=== PATIENT | female | born 1990 | race American Indian/Alaskan Native ===

== ENCOUNTER 2018-11-28 19:59 | Emergency (ER) | payer OTHER ==
--- NOTE | 2018-11-28 21:24 | Event Note ---
ED Screening Note Date of service: 11/28/18 Time: 21:23 ED Screening Note: 28 y/o female c/o left thumb lacerations around 4-5pm. Cut on knife. This initial assessment/diagnostic orders/clinical plan/treatment(s) is/are subject to change based on patients health status, clinical progression and re- assessment by fellow clinical providers in the ED. Further treatment and workup at subsequent clinical providers discretion. Patient/guardian urged not to elope from the ED as their condition may be serious if not clinically assessed and managed. Initial orders include:
[2018-11-28] MEDS ORDERED: NORCO 5/325 PO ONE (23:34)
--- NOTE | 2018-11-28 23:34 | Emergency Department Report ---
ED Laceration HPI - HPI Chief Complaint: Wound/Laceration Stated Complaint: LACERATION TO LT THUMB Occurred When: Today Location: Upper Extremity (left first digit) Tetanus Status: Up to Date Laceration Symptoms: Yes Pain, No Foreign Body Sensation, No Numbness, No Weakness Other History: This is a 28 year-old female who presents to the emergency room with a laceration to left first distal phalanx. Patient states she was fishing when she accidentally cut her left palm with no fissures knife around 1700 today. Patient reports she is up-to-date on tetanus vaccine. She cleaned wound with water and apply antibiotic White and he'll pressure prior to arrival. She states she is able to be in finger but it is very painful. She denies numbness or tingling, swelling, or weakness. ED Review of Systems ROS: Stated complaint: LACERATION TO LT THUMB Other details as noted in HPI Constitutional: denies: chills, fever Respiratory: denies: cough, shortness of breath, wheezing Cardiovascular: denies: chest pain, palpitations Gastrointestinal: denies: abdominal pain, nausea, diarrhea Skin: lesions (laceration left first digit). denies: rash Neurological: denies: headache, weakness, paresthesias Psychiatric: denies: anxiety, depression ED Past Medical Hx - Past Medical History Hx Hypertension: Yes Hx Arthritis: Yes (RA) Hx Asthma: Yes Hx HIV: No Additional medical history: hemorrhoids, Lupus - Surgical History Additional Surgical History: TEAR DUCT SURGERY, SURGERY ON RIGHT FOOT, 04-06-2014-X3 - Social History Smoking Status: Current Every Day Smoker Substance Use Type: None - Medications Home Medications: Home Medications Medication Instructions Recorded Confirmed Last Taken Type Ibuprofen [Motrin 800 MG tab] 09/02/15 Unknown History Lisinopril/Hydrochlorothiazide 1 tab PO DAILY 09/02/15 09/02/15 09/02/15 History Promethazine [Phenergan] 25 mg OR Q6HR PRN 09/02/15 09/02/15 Unknown History Amlodipine Besylate [Norvasc] 5 mg PO DAILY #30 tablet 11/29/18 Unknown Rx Sulfamethoxazole/Trimethoprim 1 each PO BID #14 tablet 11/29/18 Unknown Rx [Bactrim DS TAB] hydroCHLOROthiazide [HCTZ] 12.5 mg PO QDAY #30 capsule 11/29/18 Unknown Rx traMADol [Ultram 50 MG tab] 50 mg PO Q6HR PRN #12 tablet 11/29/18 Unknown Rx Laceration Physical Exam - Exam General: Vital signs noted. No distress. Alert and acting appropriately. Wound Length (cm): 2 Laceration Location: Upper Extremity (left distal phalanx) Full Body Front + Back: 1 - 2 cm linear laceration into the dermis, no drainage, nail bed intact, no visualized tendons or vessels, FROM, neurologically intact Laceration Exam: Yes Normal Distal CMS, No Foreign Body, No Exposed Tendon, Vessel, or Nerve, No Tendon Injury ED Course Vital Signs 11/28/18 11/28/18 20:22 21:21 Temperature 98.1 F 98.1 F Pulse Rate 90 86 Respiratory 18 18 Rate Blood Pressure 152/102 152/102 O2 Sat by Pulse 99 99 Oximetry Vital Signs 11/28/18 11/28/18 11/29/18 20:22 21:21 01:04 Temperature 98.1 F 98.1 F 97.8 F Pulse Rate 90 86 73 Respiratory 18 18 18 Rate Blood Pressure 152/102 152/102 177/122 Blood Pressure [Right] O2 Sat by Pulse 99 99 99 Oximetry 11/29/18 11/29/18 01:26 02:23 Temperature 98.0 F Pulse Rate 70 Respiratory 18 Rate Blood Pressure 177/122 Blood Pressure 164/98 [Right] O2 Sat by Pulse 99 Oximetry - Laceration /Wound Repair Left Anterior Distal Palm Finger Wound Location: upper extremity (first distal anterior phalanx) Wound Length (cm): 2 Wound's Depth, Shape: into muscle, irregular, flap Wound Explored: no foreign body removed Irrigated w/ Saline (ccs): 20 Betadine Prep?: Yes Anesthesia: 1% Lidocaine Volume Anesthetic (ccs): 3 Wound Repaired With: sutures Suture Size/Type: 5:0 Number of Sutures: 6 Sterile Dressing Applied?: Yes ED Medical Decision Making - Medical Decision Making This is a 28 y.o. female presents with left 1st phalanx laceration 2 hours [employer]. Patient examined by me. Patient is non-toxic appearing and stable. Physical examination of a 2 cm irregular laceration with the flap to distal first anterior phalanx, full range of motion and neurologically intact. Laceration closed with 6 sutures, review note. Blood pressure is elevated but patient has a history of hypertension. Patient reports been off medication for 6 months. Given clonidine 0.2 mg by mouth while in the ER. Blood pressure trending down on reevaluation. Start amlodipine and hydrochlorothiazide for hypertension. Tetanus vaccine up-to-date received in 2014. Discharged home for outpatient treatment with bactrim and tramadol. Discussed ER care plan with patient. Patient agreed with plan. F/U with PCP. Critical care attestation.: If time is entered above; I have spent that time in minutes in the direct care of this critically ill patient, excluding procedure time. ED Disposition Clinical Impression: Asymptomatic hypertension Laceration of finger Qualifiers: Encounter type: initial encounter Finger: thumb Damage to nail status: without damage Foreign body presence: without foreign body Laterality: left Qualified Code(s): S61.012A - Laceration without foreign body of left thumb without damage to nail, initial encounter Disposition: - TO HOME OR SELFCARE Is pt being admited?: No Does the pt Need Aspirin: No Condition: Stable Instructions: Suture Care (ED), Laceration (ED), Hypertension (ED) Additional Instructions: Take antibiotics as prescribed for the full course. Keep wound dry and clean for 48 hours. Avoid putting to much tension on wound site. Prop arm up on pillows to decrease swelling. Follow up with Primary Care Provider in 2-3 days. Have sutures removed in 7 days by primary care provider or in ER. Follow-up with your primary care doctor regarding her blood pressure in one week. Return to ER if red, swollen, foul discharge, or fever. Prescriptions: Sulfamethoxazole/Trimethoprim [Bactrim DS TAB] 1 each PO BID #14 tablet hydroCHLOROthiazide [HCTZ] 12.5 mg PO QDAY #30 capsule Amlodipine Besylate [Norvasc] 5 mg PO DAILY #30 tablet traMADol [Ultram 50 MG tab] 50 mg PO Q6HR PRN #12 tablet PRN Reason: Pain Referrals: KATIA FOLEY MD [Primary Care Provider] - 3-5 Days [facility] [Provider Group] - 3-5 Days Forms: Work/School Release Form(ED) Time of Disposition: 00:54
[2018-11-28] MEDS ORDERED: XYLOCAINE 2% INFILTRATI ONE (23:53)
[2018-11-29] MEDS ORDERED: CATAPRES PO ONE (01:12)
[2018-11-29 02:24] VITALS: BP 164/98
== END 2018-11-29 02:23 | disposition home or self-care (01) ==
LOC: ED 19:59
DX: S61.012A Laceration without foreign body of left thumb without damage to nail, initial encounter (principal); I10 Essential (primary) hypertension; M06.9 Rheumatoid arthritis, unspecified; J45.909 Unspecified asthma, uncomplicated; M32.9 Systemic lupus erythematosus, unspecified; F17.200 Nicotine dependence, unspecified, uncomplicated; Z98.890 Other specified postprocedural states; W26.0XXA Contact with knife, initial encounter; Y93.89 Activity, other specified; Y92.89 Other specified places as the place of occurrence of the external cause; Y99.8 Other external cause status

== ENCOUNTER 2020-05-05 12:50 | Emergency (ER) | payer SELFPAY ==
[2020-05-05 13:17] VITALS: BP 158/109
--- NOTE | 2020-05-05 13:57 | Event Note ---
ED Screening Note ED Screening Note: suprapubic abd pain that began 3 days ago worse with coughing and sneezing LNMP: mar 19 has not yet seen RN UROLOGY took over the counter test at home states she has not taken anything for blood pressure for over a year, states she was previously taking amlodipine states she also slammed her left pinky into a car door three hours ago and has it in the flexed position, she has FROM, no deformity, no edema PMHx HTN, lupus, RA no allergies to meds /P:3/A:2 This initial assessment/diagnostic orders/clinical plan/treatment(s) is/are subject to change based on patients health status, clinical progression and re- assessment by fellow clinical providers in the ED. Further treatment and workup at subsequent clinical providers discretion. Patient/guardian urged not to elope from the ED as their condition may be serious if not clinically assessed and managed. Initial orders include: labs, UA, US
--- NOTE | 2020-05-05 14:45 | Ultrasound Report ---
ULTRASOUND OBSTETRIC INDICATION / CLINICAL INFORMATION: , lower abd pain. TECHNIQUE: Transabdominal. COMPARISON: None available. FINDINGS: GESTATIONAL SAC: Well-defined oval shape and intrauterine in location. Small implantation bleed measu ring 0.2 x 1.5 cm YOLK SAC: No significant abnormality. EMBRYO/FETUS: No significant abnormality. - [place]-Rump Length = 6.9 cm = 6 weeks, 6 day(s). - Heart Rate, beats per minute (if present) = 141 ADNEXA: No significant abnormality. FREE FLUID: None. ADDITIONAL FINDINGS: None. IMPRESSION: 1. Single, living intrauterine with estimated sonographic age of 6 weeks, 6 day(s). 2. Small subchorionic hemorrhage/implantation bleed Signer Name: Andrew Hamilton MD Signed: 05/05/2020 2:40 PM Workstation Name: [id number]
[2020-05-05 15:05] LABS: Bacteria,Urine 1+ /HPF (Negative); Bilirubin,Urine NEG (Negative); Blood,Urine NEG (Negative); Color,Urine Yellow (Yellow); Mucus,Urine FEW /HPF; Protein,Urine <15 mg/dL mg/dL (Negative); Urobilinogen,Urine < 2.0 mg/dL (<2.0)
[2020-05-05 15:16] LABS: Basophils # (Auto) 0.1 K/mm3 (0.0-0.1); Basophils % (Auto) 0.7 % (0.0-1.8); Eosinophils # (Auto) 0.1 K/mm3 (0.0-0.4); Hematocrit 43.4 % (30.3-42.9); Hemoglobin 14.4 gm/dl (10.1-14.3); Lymphocytes # (Auto) 4.2 K/mm3 (1.2-5.4); Lymphocytes % (Auto) 46.6 % (13.4-35.0); Mean Corpuscular HGB Conc 33 % (30-34); Mean Corpuscular Volume 84 fl (79-97); Monocytes # (Auto) 0.8 K/mm3 (0.0-0.8); Monocytes % (Auto) 8.4 % (0.0-7.3); Platelet Count 378 K/mm3 (140-440); Red Blood Count 5.17 M/mm3 (3.65-5.03); Red Cell Distribution Width 13.6 % (13.2-15.2)
[2020-05-05 15:28] LABS: Blood Urea Nitrogen 9 mg/dL (7-17); Hemolysis Index 7
[2020-05-05 15:33] LABS: BUN/Creatinine Ratio 15
--- NOTE | 2020-05-05 17:10 | Emergency Department Report ---
ED General Adult HPI - General Chief complaint: Abdominal Pain Stated complaint: LOWER STOMACH PAINS/LT PINKY INJURY Time Seen by Provider: 05/05/20 13:54 Source: patient Mode of arrival: Ambulatory Limitations: No Limitations - History of Present Illness Initial comments: 29-year-old F [place] female with past medical history of untreated hypertension presents emergency department complaining of having an unconfirmed and very vague pelvic aches but primarily wanting to have her blood pressure treated due to her finding of her new . She reports no previous history of any eclampsia or preeclampsia she reports no chest pain, no palpitation no shortness of breath, no fever, chills, sweats no swelling she reports no extreme nausea and vomiting but has had some mild nausea. She reports no vaginal bleeding no dysuria. Radiation: non-radiation Quality: aching, dull Consistency: constant Improves with: none Worsens with: none Associated Symptoms: denies: weakness - Related Data Home Medications Medication Instructions Recorded Confirmed Last Taken Ibuprofen [Motrin 800 MG tab] 09/02/15 Unknown Lisinopril/Hydrochlorothiazide 1 tab PO DAILY 09/02/15 09/02/15 09/02/15 Promethazine [Phenergan] 25 mg [place] Q6HR PRN 09/02/15 09/02/15 Unknown Previous Rx's Medication Instructions Recorded Last Taken Type Amlodipine Besylate [Norvasc] 5 mg PO DAILY #30 tablet 11/29/18 Unknown Rx Sulfamethoxazole/Trimethoprim 1 each PO BID #14 tablet 11/29/18 Unknown Rx [Bactrim DS TAB] hydroCHLOROthiazide [HCTZ] 12.5 mg PO QDAY #30 capsule 11/29/18 Unknown Rx traMADoL [Ultram 50 MG tab] 50 mg PO Q6HR PRN #12 tablet 11/29/18 Unknown Rx labetaloL [Labetalol 200mg TAB] 200 mg PO BID #60 tablet 05/05/20 Unknown Rx Allergies Allergy/AdvReac Type Severity Reaction Status Date / Time No Known Allergies Allergy Verified 04/26/15 17:04 ED Review of Systems ROS: Stated complaint: LOWER STOMACH PAINS/LT PINKY INJURY Other details as noted in HPI Comment: All other systems reviewed and negative ED Past Medical Hx - Past Medical History Previous Medical History?: Yes Hx Hypertension: Yes Hx Arthritis: Yes (RA) Hx Asthma: Yes Hx HIV: No Additional medical history: hemorrhoids, Lupus - Surgical History Past Surgical History?: Yes Additional Surgical History: TEAR DUCT SURGERY, SURGERY ON RIGHT FOOT, 04-06-2014-X3 - Social History Smoking Status: Current Every Day Smoker Substance Use Type: Alcohol - Medications Home Medications: Home Medications Medication Instructions Recorded Confirmed Last Taken Type Ibuprofen [Motrin 800 MG tab] 09/02/15 Unknown History Lisinopril/Hydrochlorothiazide 1 tab PO DAILY 09/02/15 09/02/15 09/02/15 History Promethazine [Phenergan] 25 mg [place] Q6HR PRN 09/02/15 09/02/15 Unknown History Amlodipine Besylate [Norvasc] 5 mg PO DAILY #30 tablet 11/29/18 Unknown Rx Sulfamethoxazole/Trimethoprim 1 each PO BID #14 tablet 11/29/18 Unknown Rx [Bactrim DS TAB] hydroCHLOROthiazide [HCTZ] 12.5 mg PO QDAY #30 capsule 11/29/18 Unknown Rx traMADoL [Ultram 50 MG tab] 50 mg PO Q6HR PRN #12 tablet 11/29/18 Unknown Rx labetaloL [Labetalol 200mg TAB] 200 mg PO BID #60 tablet 05/05/20 Unknown Rx ED Physical Exam - General Limitations: No Limitations General appearance: alert, in no apparent distress - Head Head exam: Present: atraumatic, normocephalic - Eye Eye exam: Present: normal appearance - ENT ENT exam: Present: mucous membranes moist - Neck Neck exam: Present: normal inspection - Respiratory Respiratory exam: Present: normal lung sounds bilaterally. Absent: respiratory distress, chest wall tenderness - Cardiovascular Cardiovascular Exam: Present: regular rate, normal rhythm. Absent: systolic murmur, diastolic murmur, rubs, gallop - GI/Abdominal GI/Abdominal exam: Present: soft, normal bowel sounds - Extremities Exam Extremities exam: Present: normal inspection - Back Exam Back exam: Present: normal inspection. Absent: CVA tenderness (R), CVA tenderness (L) - Neurological Exam Neurological exam: Present: alert, oriented X3, CN II-XII intact - Psychiatric Psychiatric exam: Present: normal affect, normal mood - Skin Skin exam: Present: warm, dry, intact, normal color. Absent: rash ED Course Vital Signs 05/05/20 13:14 Temperature 98.5 F Pulse Rate 83 Respiratory 18 Rate Blood Pressure 158/109 O2 Sat by Pulse 99 Oximetry - Consultations Consultation #1: 05/05/20 17:13 Discussed case was discussed with the attending who made the recommendation for hypertension treatment ED Medical Decision Making - Lab Data Result diagrams: 05/05/20 14:29 05/05/20 14:29 Lab Results 05/05/20 05/05/20 05/05/20 Range/Units 14:13 14:29 14:29 WBC 9.0 (4.5-11.0) K/mm3 RBC 5.17 H (3.65-5.03) M/mm3 Hgb 14.4 H (10.1-14.3) gm/dl Hct 43.4 H (30.3-42.9) % MCV 84 (79-97) fl MCH 28 (28-32) pg MCHC 33 (30-34) % RDW 13.6 (13.2-15.2) % Plt Count 378 (140-440) K/mm3 Lymph % (Auto) 46.6 H (13.4-35.0) % [place] % (Auto) 8.4 H (0.0-7.3) % Eos % (Auto) 1.0 (0.0-4.3) % Baso % (Auto) 0.7 (0.0-1.8) % Lymph # (Auto) 4.2 (1.2-5.4) K/mm3 [place] # (Auto) 0.8 (0.0-0.8) K/mm3 Eos # (Auto) 0.1 (0.0-0.4) K/mm3 Baso # (Auto) 0.1 (0.0-0.1) K/mm3 Seg Neutrophils % 43.3 (40.0-70.0) % Seg Neutrophils # 3.9 (1.8-7.7) K/mm3 Sodium 134 L (137-145) mmol/L Potassium 4.1 (3.6-5.0) mmol/L Chloride 97.7 L (98-107) mmol/L Carbon Dioxide 26 (22-30) mmol/L Anion Gap 14 mmol/L BUN 9 (7-17) mg/dL Creatinine 0.6 (0.6-1.2) mg/dL Estimated GFR > 60 ml/min BUN/Creatinine Ratio 15 % Glucose 76 (65-100) mg/dL Calcium 10.0 (8.4-10.2) mg/dL HCG, Quant (0-4) mIU/mL Urine Color Yellow (Yellow) Urine Turbidity Clear (Clear) Urine pH 7.0 (5.0-7.0) Ur Specific [place] 1.016 (1.003-1.030) Urine Protein <15 mg/dl (Negative) mg/dL Urine Glucose (UA) Neg (Negative) mg/dL Urine Ketones Neg (Negative) mg/dL Urine Blood Neg (Negative) Urine Nitrite Neg (Negative) Urine Bilirubin Neg (Negative) Urine Urobilinogen < 2.0 (<2.0) mg/dL Ur Leukocyte Esterase Neg (Negative) Urine WBC (Auto) 1.0 (0.0-6.0) /HPF Urine RBC (Auto) 1.0 (0.0-6.0) /HPF U Epithel Cells (Auto) 1.0 (0-13.0) /HPF Urine Bacteria (Auto) 1+ (Negative) /HPF Urine Mucus Few /HPF 05/05/20 Range/Units 14:29 WBC (4.5-11.0) K/mm3 RBC (3.65-5.03) M/mm3 Hgb (10.1-14.3) gm/dl Hct (30.3-42.9) % MCV (79-97) fl MCH (28-32) pg MCHC (30-34) % RDW (13.2-15.2) % Plt Count (140-440) K/mm3 Lymph % (Auto) (13.4-35.0) % [place] % (Auto) (0.0-7.3) % Eos % (Auto) (0.0-4.3) % Baso % (Auto) (0.0-1.8) % Lymph # (Auto) (1.2-5.4) K/mm3 [place] # (Auto) (0.0-0.8) K/mm3 Eos # (Auto) (0.0-0.4) K/mm3 Baso # (Auto) (0.0-0.1) K/mm3 Seg Neutrophils % (40.0-70.0) % Seg Neutrophils # (1.8-7.7) K/mm3 Sodium (137-145) mmol/L Potassium (3.6-5.0) mmol/L Chloride (98-107) mmol/L Carbon Dioxide (22-30) mmol/L Anion Gap mmol/L BUN (7-17) mg/dL Creatinine (0.6-1.2) mg/dL Estimated GFR ml/min BUN/Creatinine Ratio % Glucose (65-100) mg/dL Calcium (8.4-10.2) mg/dL HCG, Quant 42890 H (0-4) mIU/mL Urine Color (Yellow) Urine Turbidity (Clear) Urine pH (5.0-7.0) Ur Specific [place] (1.003-1.030) Urine Protein (Negative) mg/dL Urine Glucose (UA) (Negative) mg/dL Urine Ketones (Negative) mg/dL Urine Blood (Negative) Urine Nitrite (Negative) Urine Bilirubin (Negative) Urine Urobilinogen (<2.0) mg/dL Ur Leukocyte Esterase (Negative) Urine WBC (Auto) (0.0-6.0) /HPF Urine RBC (Auto) (0.0-6.0) /HPF U Epithel Cells (Auto) (0-13.0) /HPF Urine Bacteria (Auto) (Negative) /HPF Urine Mucus /HPF - Radiology Data Radiology results: [place] [address] Ultrasound Report Signed Patient: CORINE ROME MR#: [id number] : 1990 Acct:[id number] Age/Sex: 29 / F ADM Date: 05/05/20 Loc: ED Attending Dr: Ordering Physician: BILL ROSAS Date of Service: 05/05/20 Procedure(s): US OB <= 14 weeks fetus Accession Number(s): [id number] cc: BILL ROSAS ULTRASOUND OBSTETRIC INDICATION / CLINICAL INFORMATION: , lower abd pain. TECHNIQUE: Transabdominal. COMPARISON: None available. FINDINGS: GESTATIONAL SAC: Well-defined oval shape and intrauterine in location. Small implantation bleed measuring 0.2 x 1.5 cm YOLK SAC: No significant abnormality. EMBRYO/FETUS: No significant abnormality. - [place]-Rump Length = 6.9 cm = 6 weeks, 6 day(s). - Heart Rate, beats per minute (if present) = 141 ADNEXA: No significant abnormality. FREE FLUID: None. ADDITIONAL FINDINGS: None. IMPRESSION: 1. Single, living intrauterine with estimated sonographic age of 6 weeks, 6 day(s). 2. Small subchorionic hemorrhage/implantation bleed Signer Name: Andrew Hamilton MD Signed: 05/05/2020 2:40 PM Workstation Name: [id number] Transcribed By: TL Dictated By: Andrew Hamilton MD Electronically Authenticated By: Andrew Hamilton MD Signed Date/Time: 05/05/20 1440 DD/ 1439 TD/TT: - Medical Decision Making 29-year-old female 6 weeks with a longstanding history of hypertension presents to the ED with what she reports to this office primarily to receive blood pressure medications that she does not wish to lose her baby due to hypertension or a lack of control. She is relatively asymptomatic in the realm of hypertension at this point. Does have plan to follow-up with an [employer] in the next 2 weeks but states that her Medicaid will have kicked in by then appointment is scheduled. This present time she sees no urgent or emergent medical conditions present that are currently complicating her . Her blood pressure although elevated is one of the better blood pressure she has had and her medical history. Critical care attestation.: If time is entered above; I have spent that time in minutes in the direct care of this critically ill patient, excluding procedure time. ED Disposition Clinical Impression: Hypertension affecting in first trimester Disposition: DC-01 TO HOME OR SELFCARE Is pt being admited?: No Does the pt Need Aspirin: No Condition: Stable Instructions: Abdominal Pain (ED), Hypertension (ED), Hypertension During , Zllc-af-Rode, Hypertension, Adult, [id number]-[id number], Preventing Hypertension, Preeclampsia and Eclampsia, Hypertension During Prescriptions: labetaloL [Labetalol 200mg TAB] 200 mg PO BID #60 tablet Referrals: [facility] [Provider Group] - 3-5 Days
== END 2020-05-05 19:54 | disposition home or self-care (01) ==
LOC: ED 12:50
DX: O16.1 Unspecified maternal hypertension, first trimester (principal); M19.90 Unspecified osteoarthritis, unspecified site; J45.909 Unspecified asthma, uncomplicated; F17.200 Nicotine dependence, unspecified, uncomplicated; Z98.890 Other specified postprocedural states; Z79.899 Other long term (current) drug therapy; Z3A.01 Less than 8 weeks gestation of pregnancy
CPT/HCPCS: 36415; 76801; 80048; 81001; 84702; 85025